=== PATIENT | male | born 1985 | race Caucasian/White ===

== ENCOUNTER 2016-10-06 16:48 | Emergency (ER) | payer OTHER ==
[~2016-10-06] VITALS: Ht 188 cm; Wt 113.4 kg
[2016-10-06 16:58] VITALS: BP 140/90
--- NOTE | 2016-10-06 18:31 | PHYS DOC ---
Past History Past Medical History: Anxiety Past Surgical History: Other Alcohol Use: Occasionally Adult General Chief Complaint Chief Complaint: DEPRESSION HPI HPI Patient is a 30 year old male who presents with suicidal ideation. 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 He has not been drinking today, denies suicidal ideation at this time. Denies having any plan at this time. He has history of anxiety, not having been treated for depression in the past. Denies drug use. He is in the and is accompanied by his boss seeking clearance to return to work. Review of Systems Review of Systems Constitutional: Denies fever or chills HENT: Denies nasal congestion or sore throat Respiratory: Denies cough or shortness of breath Cardiovascular: Denies chest pain GI: Denies abdominal pain, nausea, vomiting Musculoskeletal: Denies back pain or joint pain Neurologic: Denies headache, focal weakness or sensory changes Psychiatric: Reports depression Allergies Allergies Allergies Coded Allergies Type Severity Reaction Last Updated Verified Penicillins Allergy Unknown 10/06/16 Yes cefprozil Allergy Unknown 10/06/16 Yes ibuprofen Allergy Unknown 10/06/16 Yes Physical Exam Physical Exam Constitutional: Well developed, well nourished, no acute distress, non-toxic appearance. HENT: Normocephalic, atraumatic, bilateral external ears normal, oropharynx moist, nose normal. Eyes: conjunctiva normal, no discharge. Neck: supple, no stridor. Cardiovascular: RRR, no murmurs, no edema. Lungs & Thorax: LCTAB, no wheezing, no respiratory distress. Abdomen: soft, nontender, nondistended. Skin: Warm, dry, no erythema, no rash. Back: No tenderness. Extremities: No tenderness, no edema. Neurologic: Alert and oriented X 3 Psychologic: Affect normal, judgement normal, mood normal. Current Patient Data Vital Signs Vital Signs Date Time Temp Pulse Resp B/P (MAP) Pulse Ox O2 Delivery O2 Flow Rate FiO2 10/06/16 16:58 98.1 91 18 96 Room Air EKG EKG [] Radiology/Procedures Radiology/Procedures [] Course & Med Decision Making Course & Med Decision Making Pertinent Labs and Imaging studies reviewed. (See chart for details) The patient presents with suicidal ideation, not suicidal at this time. No medical complaints. We'll obtain screening labs and tele psychiatric consultation. Anticipate he can be discharged home after evaluation. At this time I would not keep him against his wishes. Will transfer care to Dr. Dove to follow-up results and disposition accordingly after evaluation completed. Patient in stable condition at the end of my shift. Dawna Vides MD [] Pt signed out to me at 1800 shift change, pt seen chart reviewed. Reassuring workup. Mental Health Screener reveals pt is not danger to self or others, d/c home to f/u prn. Pt expresses agreement/understanding Dragon Disclaimer Dragon Disclaimer This chart was dictated in whole or in part using Voice Recognition software in a busy, high-work load, and often noisy Emergency Department environment. It may contain unintended and wholly unrecognized errors or omissions. Departure Departure: Impression: Primary Impression: Adjustment disorder Additional Impression: Suicidal ideation Disposition: 01 HOME, SELF-CARE Admitting Physician: Other Condition: STABLE Referrals: SHAUN GODINEZ DO (PCP) Patient Instructions: Adjustment Disorder, Suicidal Feelings, How to Help Yourself Additional Instructions: Avoid alcohol until follow up with your doctor. Follow up on Post for recheck and further evaluation/treatment. Return to ED with new or changing symptoms. Problem Qualifiers DAWNA VIDES MD Oct 06, 2016 18:31 SYLVIA DOVE DO Oct 06, 2016 19:49
[2016-10-06 18:47] LABS: BASO # 0.1 x10^3/uL (0.0-0.2); BASO % 1 % (0-3); EOS # 0.5 x10^3/uL (0.0-0.7); EOS % 4 % (0-3); HEMATOCRIT 47.7 % (39.0-53.0); LYMPH # 2.5 x10^3/uL (1.0-4.8); LYMPH % 22 % (24-48); MEAN CORPUSCULAR HEMOGLOBIN 31 pg (25-35); MEAN CORPUSCULAR HGB CONC 36 g/dL (31-37); MEAN CORPUSCULAR VOLUME 87 fL (79-100); MONO # 1.3 x10^3/uL (0.0-1.1); MONO % 11 % (0-9); NEUT # 6.9 x10^3uL (1.8-7.7); NEUT % 61 % (31-73); PLATELET COUNT 278 x10^3/uL (140-400); RED BLOOD COUNT 5.51 x10^6/uL (4.30-5.70); RED CELL DISTRIBUTION WIDTH 14.2 % (11.5-14.5); WHITE BLOOD COUNT 11.3 x10^3/uL (4.0-11.0)
[2016-10-06 18:54] LABS: POTASSIUM 3.9 mmol/L (3.5-5.1)
[2016-10-06 19:03] LABS: SALIC 2.2 mg/dL (2.8-20.0)
[2016-10-06 19:04] LABS: ACETAMIN < 2.0 mcg/mL (10-30); ETHANOL < 10 mg/dL (0-10)
[2016-10-06 19:14] LABS: CALCIUM 8.6 mg/dL (8.5-10.1); CREATININE 1.2 mg/dL (0.7-1.3); GFR 71.1
[2016-10-06 19:29] LABS: AMPHETAMINE/METHAMPHETAMINE NEG (NEG); BARBITURATES NEG (NEG); BENZODIAZEPINES NEG (NEG); CANNABINOIDS NEG (NEG); COCAINE NEG (NEG); METHADONE NEG (NEG); OPIATES NEG (NEG); PHENCYCLIDINE NEG (NEG)
[2016-10-06 20:02] LABS: HEMOGLOBIN 16.8 g/dL (13.0-17.5)
== END 2016-10-06 20:00 | disposition home or self-care (01) ==
LOC: ER 16:48
DX: F43.20 Adjustment disorder, unspecified (principal); R45.851 Suicidal ideations; F41.9 Anxiety disorder, unspecified; Z88.6 Allergy status to analgesic agent; Z88.0 Allergy status to penicillin; Z88.8 Allergy status to other drugs, medicaments and biological substances
CPT/HCPCS: 36415; 80048; 80305; 85027; 99284; G0480; G0481